=== PATIENT | male | born 1990 | race Caucasian/White ===

== ENCOUNTER 2020-02-28 12:04 | Inpatient (IN) | payer OTHER ==
--- NOTE | 2020-02-28 12:11 | PDOC ---
Rapid Medical Evaluation Time Seen by Provider: 02/28/20 12:07 Medical Evaluation: 02/28/20 12:07 Pt presents for evaluation of L 2nd digit redness and swelling. He states he was using a oil sprayer yesterday and injured his L 2nd digit. He now notes the finger is swollen and painful. Pt is R handed. Exam: Circumferential swelling to the L 2nd digit with streaking to the L hand Orders: defer to provider Pt to proceed to the ER for further evaluation Discharge Disposition - Diagnosis Hand swelling Qualifiers: Laterality: left Qualified Code(s): M79.89 - Other specified soft tissue disorders - Referrals - Patient Instructions - Post Discharge Activity
--- NOTE | 2020-02-28 13:22 | PDOC ---
History of Present Illness - General Chief Complaint: Injury Stated Complaint: SENT BY DOC Time Seen by Provider: 02/28/20 12:07 History Source: Patient Exam Limitations: No Limitations - History of Present Illness Initial Comments: 02/28/20 13:12 30y previously healthy M presenting w L hand 2nd digit edema/erythema/warmth/distal fingertip numbness after accidentally shooting l acryl pain into digit. Can still flex/extend digit. Did not take any meds for pain. Pt is R handed. This morning, obtained finger XR at [facility] which did not show any fracture/dislocation/bony involvement. Last tdap 2017. denies fever, cough, chest pain/SOB Past History - Medical History Allergies/Adverse Reactions: Allergies Allergy/AdvReac Type Severity Reaction Status Date / Time No Known Allergies Allergy Verified 02/28/20 12:07 Home Medications: Ambulatory Orders NK [No Known Home Medication] 02/28/20 COPD: No - Immunization History Immunization Up to Date: Yes - Psycho-Social/Smoking History Smoking History: Current every day smoker Have you smoked in the past 12 months: No Information on smoking cessation initiated: No - Substance Abuse Hx (Audit-C & DAST Scrn) How often the patient has a drink containing alcohol: Never Score: In Men: 4 or > Positive; In Women: 3 or > Positive: 0 Screen Result (Pos requires Nsg. Audit-10AR): Negative In the last yr the pt used illegal drug/Rx for NonMed reason: No Score: Yes response is considered Positive: 0 Screen Result (Positive result requires Nsg. DAST-10): Negative Review of Systems - Review of Systems Constitutional: No: Chills, Fever HEENTM: No: Eye Pain, Nose Congestion Respiratory: No: Cough, Shortness of Breath Cardiac (ROS): No: Chest Pain, Palpitations ABD/GI: No: Abdominal Distended, Constipated, Diarrhea, Nausea, Vomiting : No: Burning, Dysuria Musculoskeletal: Yes: Joint Pain. No: Back Pain Integumentary: No: Bruising, Flushing Neurological: No: Headache, Seizure Psychiatric: No: Anxiety, Depression Endocrine: No: Intolerance to Cold, Intolerance to Heat Hematologic/Lymphatic: No: Anemia, Blood Clots *Physical Exam - Vital Signs Last Vital Signs Temp Pulse Resp BP Pulse Ox 98.1 F 104 H 18 153/92 98 07/01/20 12:09 02/28/20 12:28 02/28/20 12:28 02/28/20 12:28 02/28/20 12:28 - Physical Exam General Appearance: Yes: Nourished, Appropriately Dressed, Mild Distress HEENT: positive: EOMI, DIANE, Normal Voice, Hearing Grossly Normal. negative: Scleral Icterus (R), Scleral Icterus (L) Respiratory/Chest: positive: Lungs Clear, Normal Breath Sounds. negative: Chest Tender, Respiratory Distress Cardiovascular: positive: Regular Rhythm, Regular Rate, S1, S2. negative: Edema, Murmur Comments:: 02/28/20 14:12 2+ radial oulses sandor Gastrointestinal/Abdominal: positive: Normal Bowel Sounds, Flat, Soft. negative: Tender, Organomegaly Extremity: positive: Other (L 2nd digit : warm, numb to sensation distal fingertip, distal phalanx swollen, erythematous w dark discoloration over distal phalanx, no discharge/bleeding, moderately tender to palpation) Integumentary: positive: Normal Color, Warm Neurologic: positive: Fully Oriented, Alert, Normal Mood/Affect, Normal Response, Responsive ED Treatment Course - LABORATORY CBC & Chemistry Diagram: 02/28/20 13:40 02/28/20 13:40 Medical Decision Making - Medical Decision Making 02/28/20 13:50 EKG - NSR, HR 94, QTc 445, no ST changes --- 30y previously healthy M presenting w L hand 2nd digit edema/erythema/warmth/distal fingertip numbness after accidentally shooting lacryl pain into digit. Likely cellulitis. Low concern for peronychia/pulp vs flexor tenosynovitis Consulted ortho Dr Kobi RICK evaluated pt, advised no emergent intervention needed, not concerned about compartment syndrome, give antibiotics and admit Given vanc, percocet, 4 morphine Admit m/s hospitalist cellulitis No PCP Discharge - Discharge Information Problems reviewed: Yes Clinical Impression/Diagnosis: Cellulitis and abscess of finger, unspecified Condition: Good - Follow up/Referral - Patient Discharge Instructions - Post Discharge Activity
[2020-02-28] MEDS ORDERED: VANCOMYCIN 1 GM in D5W (PRE-DOCKED) 1,000 MG/250 ML IVPB ONE (13:24)
[2020-02-28] MEDS ORDERED: VANCOMYCIN 1 GRAM (PRE-DOCKED) 1,000 MG/250 ML BAG IVPB ONE (13:25)
[2020-02-28 13:51] LABS: BASO % 0.2 % (0-2.0); EOS % 4.6 % (0-4.5); HEMATOCRIT 43.6 % (35.4-49); HEMOGLOBIN 14.5 GM/dL (11.7-16.9); LYMPH % 17.2 % (8-40); MCH 31.3 pg (25.7-33.7); MCHC 33.3 g/dl (32.0-35.9); MEAN CELL VOLUME 94.1 fl (80-96); MEAN PLT VOLUME 8.7 fl (7.5-11.1); PLATELET COUNT 341 K/MM3 (134-434); RBC 4.63 M/mm3 (4.00-5.60); RDW 13.1 % (11.9-15.9)
--- NOTE | 2020-02-28 13:53 | CON.ORTH ---
Consult Reason for Consultation:: left index finger infection - Smoking History Smoking history: Current every day smoker Have you smoked in the past 12 months: No Home Medications - Allergies Allergies/Adverse Reactions: Allergies Allergy/AdvReac Type Severity Reaction Status Date / Time No Known Allergies Allergy Verified 02/28/20 12:07 - Home Medications Home Medications: Ambulatory Orders NK [No Known Home Medication] 02/28/20 Physical Exam for Ortho Vital Signs: Vital Signs Temperature 98.1 F 02/28/20 12:09 Pulse Rate 104 H 02/28/20 12:28 Respiratory Rate 18 02/28/20 12:28 Blood Pressure 153/92 02/28/20 12:28 O2 Sat by Pulse Oximetry (%) 98 02/28/20 12:28 - Upper Extremity Hand: Yes: Left, Erythema, Limited ROM, Pain, Swelling, Tenderness, Other (left index finger- +erythema, + swelling, no fluctuance,+ ttp over distal phalanx, limited rom in pip and dip, slight decreased sensation in distal phalanx, good capillary refill) Imaging - Results X-ray: Image Reviewed, Other (Image reviewed from urgent care shows no fx, dislocation lytic or blastic lesions) Assessment/Plan 30 year old right hand dominant male who presents to the ED from Urgent Care for evaluation of finger pain for one day. Patient was using a spray i painter yesterday and consequently injured his left 2nd digit. He endorses swelling, erythema, and pain for the distal aspect of the left 2nd digit. Denies any fever, chills, n/v. Denies numbness or tingling but has decreased sensation in the distal phalanx. a/p left index finger cellulitis No surgical intervention at this time, will continue to observe recommend IV abx ID consult strict elevation warm soaks will follow d/w Dr. Peace
[2020-02-28] MEDS ORDERED: morphine CARPU-JECT 4 MG/1 ML DISP.SYRIN IVPUSH ONE (14:27)
[2020-02-28 14:29] LABS: ALBUMIN 4.4 g/dl (3.4-5.0); BILIRUBIN,TOTAL 0.6 mg/dL (0.2-1); BLOOD UREA NITROGEN 11.3 mg/dL (7-18); CALCIUM 9.8 mg/dL (8.5-10.1); CREATININE 0.9 mg/dL (0.55-1.3); POTASSIUM 4.1 mmol/L (3.5-5.1); TOT PROT 8.4 g/dl (6.4-8.2)
--- NOTE | 2020-02-28 14:44 | HP ---
CHIEF COMPLAINT: PCP: None HISTORY OF PRESENT ILLNESS: 30y/o smoker M presenting w L hand 2nd digit edema/erythema/warmth/distal fingertip numbness after accidentally shooting lacryl paint into digit yest at work. Pt initially seen in urgent care and sent over to the ED for further eval. Can still flex/extend digit. Did not take any meds for pain. Pt is R handed. This morning, pain worsened beginning around 4am and pt went to obtained finger XR at [facility] which did not show any fracture/dislocation/bony involvement. Last tdap 2017. denies fever, cough, chest pain/SOB. Pt was not wearing any gloves ER course was notable for: (1) Left 2nd digit pain (2) (3) Recent Travel: Denies PAST MEDICAL HISTORY: pos smoking hx PAST SURGICAL HISTORY: none Social History: Smoking: Current smoker Alcohol: occasional Drugs: denies Works as a painter assistant Allergies No Known Allergies Allergy (Verified 02/28/20 12:07) HOME MEDICATIONS: Home Medications Medication Instructions Recorded NK [No Known Home Medication] 02/28/20 REVIEW OF SYSTEMS CONSTITUTIONAL: Absent: fever, chills, diaphoresis, generalized weakness, malaise, loss of appetite, weight change HEENT: Absent: rhinorrhea, nasal congestion, throat pain, throat swelling, difficulty swallowing, mouth swelling, ear pain, eye pain, visual changes CARDIOVASCULAR: Absent: chest pain, syncope, palpitations, irregular heart rate, lightheadedness, peripheral edema RESPIRATORY: Absent: cough, shortness of breath, dyspnea with exertion, orthopnea, wheezing, stridor, hemoptysis GASTROINTESTINAL: Absent: abdominal pain, abdominal distension, nausea, vomiting, diarrhea, constipation, melena, hematochezia GENITOURINARY: Absent: dysuria, frequency, urgency, hesitancy, hematuria, flank pain, genital pain MUSCULOSKELETAL: Absent: myalgia, arthralgia, joint swelling, back pain, neck pain POS LEFT HAND 2ND DIGIT PAIN SKIN: Absent: rash, itching, pallor HEMATOLOGIC/IMMUNOLOGIC: Absent: easy bleeding, easy bruising, lymphadenopathy, frequent infections ENDOCRINE: Absent: unexplained weight gain, unexplained weight loss, heat intolerance, cold intolerance NEUROLOGIC: Absent: headache, focal weakness or paresthesias, dizziness, unsteady gait, seizure, mental status changes, bladder or bowel incontinence PSYCHIATRIC: Absent: anxiety, depression, suicidal or homicidal ideation, hallucinations. PHYSICAL EXAMINATION Vital Signs - 24 hr 02/28/20 02/28/20 12:09 12:28 Temperature 98.1 F Pulse Rate 120 H Pulse Rate [ 104 H Left Apical] Respiratory 18 18 Rate Blood Pressure 166/106 H Blood Pressure 153/92 [Left Arm] O2 Sat by Pulse 100 98 Oximetry (%) GENERAL: Awake, alert, and fully oriented, in no acute distress. HEAD: Normal with no signs of trauma. EYES: NC/AT, extraocular movements intact, sclera anicteric, conjunctiva clear. No lid lag. EARS, NOSE, THROAT: Ears normal, nares patent, oropharynx clear without exudates. Moist mucous membranes. NECK: Normal range of motion, supple without lymphadenopathy, JVD, or masses. LUNGS: Breath sounds equal, clear to auscultation bilaterally. No wheezes, and no crackles. No accessory muscle use. HEART: Regular rate and rhythm, normal S1 and S2 without murmur, rub or gallop. ABDOMEN: Soft, nontender, not distended, normoactive bowel sounds, no guarding, no rebound, no masses. No hepatomegaly or splenomegaly. MUSCULOSKELETAL: Normal range of motion at all joints. No bony deformities or tenderness. No CVA tenderness. UPPER EXTREMITIES: 2+ pulses, warm, well-perfused. No cyanosis. No clubbing. No peripheral edema. LOWER EXTREMITIES: 2+ pulses, warm, well-perfused. No calf tenderness. No peripheral edema. NEUROLOGICAL: Cranial nerves II-XII intact. Normal speech. Normal gait. PSYCHIATRIC: Cooperative. Good eye contact. Appropriate mood and affect. SKIN: Warm, dry, normal turgor, no rashes or lesions noted, normal capillary refill. LEFT HAND 2ND DIGIT DISCOLORED, EDEMATOUS, WARM TO TOUCH, LEFT HAND EDEMA WELL Laboratory Results - last 24 hr 02/28/20 02/28/20 13:40 13:40 WBC 16.0 H RBC 4.63 Hgb 14.5 Hct 43.6 MCV 94.1 MCH 31.3 MCHC 33.3 RDW 13.1 Plt Count 341 MPV 8.7 Absolute Neuts (auto) 11.3 H Neutrophils % 71.0 Lymphocytes % 17.2 Monocytes % 7.0 Eosinophils % 4.6 H Basophils % 0.2 Nucleated RBC % 0 Sodium 136 Potassium 4.1 Chloride 103 Carbon Dioxide 25 Anion Gap 8 BUN 11.3 Creatinine 0.9 Est GFR (CKD-EPI)AfAm 130.52 Est GFR (CKD-EPI)NonAf 112.62 Random Glucose 120 H Calcium 9.8 Total Bilirubin 0.6 AST 17 ALT 32 Alkaline Phosphatase 58 Total Protein 8.4 H Albumin 4.4 ekg: PENDING ASSESSMENT/PLAN: 30 Y/O SMOKER ADMITTED WITH LEFT HAND 2ND DIGIT CELLULITIS FROM LACRYL PAINT *LEFT HAND AND 2ND DIGIT CELLULITIS -- S/P VANC WILL ADD ROCEPHIN ID EVAL BLOOD CLTURES DRAWN LEUKOCYTOSIS PULSES INTACT AFEBRILE -- SEEN BY ORTHO WILL GET ID EVAL *TOBACCO USE - STATES DOESNT SMOKE MUCH OUTPT FOLLOW UP FOR TOBACCO CESSATION *DVT PROPHY - VENOSYNES WHILE IN BED, AMBULATION Family Medical History Family Hx Coronary Artery Disease: Mother Problem List - Problem (1) Cellulitis and abscess of finger, unspecified Code(s): L03.019 - CELLULITIS OF UNSPECIFIED FINGER; L02.519 - CUTANEOUS ABSCESS OF UNSPECIFIED HAND (2) Tobacco use disorder Code(s): F17.200 - NICOTINE DEPENDENCE, UNSPECIFIED, UNCOMPLICATED Visit type - Emergency Visit Emergency Visit: Yes Care time: The patient presented to the Emergency Department on the above date and was hospitalized for further evaluation of their emergent condition. - New Patient This patient is new to me today: Yes Date on this admission: 02/28/20 - Critical Care Critical Care patient: No
[2020-02-28] MEDS ORDERED: MORPHINE SULFATE 2 MG/ML VIAL IVPUSH PRN (14:45)
[2020-02-28] MEDS ORDERED: ACETAMINOPHEN 325 MG TABLET (FP) PO PRN (14:45)
[2020-02-28] MEDS ORDERED: MORPHINE SULFATE 2 MG/ML VIAL ONE ×2 (15:21→19:42)
--- NOTE | 2020-02-28 15:54 | PDOC ---
Documentation entered by Leah Cash SCRIBE, acting as scribe for Li Amaral MD. Li Amaral MD: This documentation has been prepared by the Shreya dale Adrianna, SCRIBE, under my direction and personally reviewed by me in its entirety. I confirm that the documentation accurately reflects all work, treatment, procedures, and medical decision making performed by me. Attending Attestation - Resident Resident Name: Raji Wong - ED Attending Attestation I have performed the following: I have examined & evaluated the patient, The case was reviewed & discussed with the resident, I agree w/resident's findings & plan, Exceptions are as noted - HPI HPI: The patient is a 30 year old male, with significant PMH, who presents to the ED from Urgent Care for evaluation of finger pain for one day. Patient was using a solder sprayer yesterday and consequently injured his left 2nd digit. He endorses swelling, erythema, and pain for the distal aspect of the left 2nd digit. Patient is RHD. Allergies: NKA , NKDA Surgical History: None reported Social History: No toxic habits - Physicial Exam PE: General: non-toxic appearing Extremities: L 2nd digit with uniform swelling, holding in slight flexion, +pain on passive extension, diffuse tenderness of L 2nd digit, abduction/adduction intact, no appreciable fluctuance, good cap refill - Medical Decision Making 02/28/20 15:52 30 yo M with concern for flexor tenosynovitis, less likely felon or paronychia, seen by ortho who recommend admission for IV abx. Pt. seen at urgent care with xray negative for fx or foreign body Plan: -labs -vanc -pain control as needed -admit This clinical encounter is taking place during a federal and state health care emergency attributable to the novel [place] Virus pandemic. The [place] of the Department of Health and Human Services has declared, pursuant to the Public Health Service Act 319F-3 (42 U.S.C. 247d-6d), that a covered persons activities related to medical countermeasures against COVID-19 will be immune from liability under Federal and State law. Heart Score/ECG Review - ECG Intrepretation Rhythm: Regular Rhythm - ECG Impressions Normal ECG: Yes Comment:: ECG performed at 13:40 on 02/28/2020 demonstrates normal sinus rhythm at 94bpm. Normal ECG. Discharge - Discharge Information Problems reviewed: Yes Clinical Impression/Diagnosis: Cellulitis and abscess of finger, unspecified Condition: Good - Follow up/Referral - Patient Discharge Instructions - Post Discharge Activity
[2020-02-28] MEDS ORDERED: CEFTRIAXONE 1 GM in DEXTROSE 5%-WATER - 50 ML IVPB SCH (16:00)
[2020-02-28] MEDS ORDERED: CEFTRIAXONE 1 GM/50 ML BAG ONE (16:31)
[2020-02-28] MEDS ORDERED: METOCLOPRAMIDE HCL INJECTION 10 MG/2 ML VIAL IVPB ONE (18:47)
[2020-02-28] MEDS ORDERED: MORPHINE SULFATE 2 MG/ML VIAL IVPUSH ONE (20:30)
[2020-02-29] MEDS ORDERED: oxyCODONE HCL 5 MG TABLET ONE ×2 (01:42→07:52)
[2020-02-29] MEDS: oxyCODONE HCL 5 MG TABLET PO PRN ×2 (01:44→07:56)
[2020-02-29 06:06] LABS: HEMATOCRIT 42.7 % (35.4-49); HEMOGLOBIN 14.1 GM/dL (11.7-16.9); MCH 31.1 pg (25.7-33.7); MCHC 32.9 g/dl (32.0-35.9); MEAN CELL VOLUME 94.4 fl (80-96); MEAN PLT VOLUME 8.7 fl (7.5-11.1); PLATELET COUNT 312 K/MM3 (134-434); RBC 4.53 M/mm3 (4.00-5.60); RDW 13.2 % (11.9-15.9); WHITE BLOOD COUNT 13.1 K/mm3 (4.0-10.0)
[2020-02-29 06:25] LABS: BLOOD UREA NITROGEN 14.5 mg/dL (7-18); CALCIUM 9.2 mg/dL (8.5-10.1); POTASSIUM 4.1 mmol/L (3.5-5.1)
--- NOTE | 2020-02-29 08:06 | PN ---
Teaching Attending Note Name of Resident: Anderson Miller ATTENDING PHYSICIAN STATEMENT I saw and evaluated the patient. I reviewed the resident's note and discussed the case with the resident. I agree with the resident's findings and plan as documented. SUBJECTIVE: Patient states that his finger is feeling worse and the hand is more swollen. OBJECTIVE: Vital Signs Temperature 98.2 F 02/29/20 06:20 Pulse Rate 99 H 02/29/20 06:20 Respiratory Rate 18 02/29/20 06:20 Blood Pressure 143/90 02/29/20 06:20 O2 Sat by Pulse Oximetry (%) 100 02/29/20 06:20 Initial Vital Signs Temp Pulse Resp BP Pulse Ox 98.1 F 120 H 18 166/106 H 100 02/28/20 12:09 02/28/20 12:09 02/28/20 12:09 02/28/20 12:09 02/28/20 12:09 PE: per resident's note CBCD WBC 13.1 K/mm3 (4.0-10.0) H 02/29/20 05:35 RBC 4.53 M/mm3 (4.00-5.60) 02/29/20 05:35 Hgb 14.1 GM/dL (11.7-16.9) 02/29/20 05:35 Hct 42.7 % (35.4-49) 02/29/20 05:35 MCV 94.4 fl (80-96) 02/29/20 05:35 MCHC 32.9 g/dl (32.0-35.9) 02/29/20 05:35 RDW 13.2 % (11.9-15.9) 02/29/20 05:35 Plt Count 312 K/MM3 (134-434) 02/29/20 05:35 MPV 8.7 fl (7.5-11.1) 02/29/20 05:35 CMP Sodium 137 mmol/L (136-145) 02/29/20 05:35 Potassium 4.1 mmol/L (3.5-5.1) 02/29/20 05:35 Chloride 103 mmol/L (98-107) 02/29/20 05:35 Carbon Dioxide 26 mmol/L (21-32) 02/29/20 05:35 Anion Gap 8 MMOL/L (8-16) 02/29/20 05:35 BUN 14.5 mg/dL (7-18) 02/29/20 05:35 Creatinine 1.0 mg/dL (0.55-1.3) 02/29/20 05:35 Random Glucose 106 mg/dL (74-106) 02/29/20 05:35 Calcium 9.2 mg/dL (8.5-10.1) 02/29/20 05:35 Total Bilirubin 0.6 mg/dL (0.2-1) 02/28/20 13:40 AST 17 U/L (15-37) 02/28/20 13:40 ALT 32 U/L (13-61) 02/28/20 13:40 Alkaline Phosphatase 58 U/L (45-117) 02/28/20 13:40 Total Protein 8.4 g/dl (6.4-8.2) H 02/28/20 13:40 Albumin 4.4 g/dl (3.4-5.0) 02/28/20 13:40 Current Medications Generic Name Dose Route Start Last Admin Trade Name Freq PRN Reason Stop Dose Admin Acetaminophen 650 mg 02/28/20 14:45 Tylenol - PO Q4H PRN FEVER Ceftriaxone Sodium 1 gm/ 50 mls @ 100 mls/hr 02/28/20 16:00 02/28/20 16:29 Dextrose IVPB 100 mls/hr DAILY DICKSON Administration Protocol Morphine Sulfate 1 mg 02/28/20 14:45 02/28/20 19:48 Morphine Sulfate IVPUSH 1 mg Q4H PRN Administration PAIN LEVEL 7 - 10 Oxycodone HCl 5 mg 02/28/20 14:45 02/29/20 07:56 Roxicodone - PO 5 mg Q4H PRN Administration PAIN LEVEL 4 - 6 Home Medications Medication Instructions Recorded NK [No Known Home Medication] 02/28/20 Laboratory Tests 02/28/20 13:40 COVID-19 (EFE) Pending Microbiology 02/28/20 13:40 Blood - Peripheral Venous Blood Culture - Preliminary NO GROWTH OBTAINED AFTER 24 HOURS, INCUBATION TO CONTINUE FOR 4 DAYS. 02/28/20 13:40 Blood - Peripheral Venous Blood Culture - Preliminary NO GROWTH OBTAINED AFTER 24 HOURS, INCUBATION TO CONTINUE FOR 4 DAYS. ASSESSMENT AND PLAN: This patient is a 30yom right handed, smoker presented with left Index finger cellulitis. # Acute left index finger cellulitis. s/p IV rocephin, will switch to Zosyn IV, s/p one dose of vanco. Blood Cx is pending, REFUGIO Phylicia is on the case. # Tobacco dependency: advised cessation # Elevated Blood pressure; possible due to pain, will monitor #BMI of 28; Overweight ; lifestyle modifications. DVT Px: early ambulation , lovenox sq
[2020-02-29] MEDS ORDERED: ENOXAPARIN NA (PORCINE) 40 MG/0.4 ML DISP.SYRIN SQ ONE (08:29)
[2020-02-29] MEDS ORDERED: ENOXAPARIN NA (PORCINE) 40 MG/0.4 ML DISP.SYRIN SQ SCH (10:00)
[2020-02-29] MEDS ORDERED: PIPERACILLIN/TAZOB 3.375 GM 3.375 GM in DEXTROSE 5%-WATER - 50 ML IVPB SCH (10:00)
--- NOTE | 2020-02-29 10:10 | PN ---
Progress Note (short form) - Note Progress Note: Pt seen and examined in ER. Of note - the ER staff called me yesterday to see this patient. They mistakenly thought our group was on ER call for orthopedics, there is no Hand call. I told them we were not on ER call and to call Dr Mondragon's group. They asked if we could do a quick consult, which we did. Then we were called again this morning to see the patient in the ER. I reiterated that they should call the Ortho team that is steam distribution supervisor, again Dr Mondragon's group. I saw the patient again as a courtesy to the ER, but we are not taking this patient on. PE Left index finger with white paint, no significant injection wound, or exit wound, but entry wound likely at tuft. + area of cellulitis circumferentially around left index finger both volar and dorsal, with extension into the dorsal aspect of the hand. No drainage. Grossly NVI. Decreased ROM of index finger secondary to pain and swelling, FDS, FDP and EDC all intact. Index finger is moderately swollen and tight, tender globally. Imp Left index finger paint gun injection injury, now with left index finger infection, with extension to the left hand. Rec Continue IV antibiotics. Elevation The patient may need a surgical I&D, that is up to the Orthopedic consult steam distribution supervisor for the ER. I defer to their opinion. Please put a consult in for Dr Mondragon and Jayson's group. I relayed this request verbally to the ER staff twice.
[2020-02-29 11:07] VITALS: TEMP 97.5
[2020-02-29] MEDS ORDERED: VANCOMYCIN 1 GRAM (PRE-DOCKED) 1,000 MG/250 ML BAG IVPB ONE (11:12)
[2020-02-29] MEDS ORDERED: ACETAMINOPHEN 325 MG TABLET (FP) ONE (11:12)
--- NOTE | 2020-02-29 11:50 | PN ---
Progress Note (short form) - Note Progress Note: came to see the patient patient being transferred to [facility]
--- NOTE | 2020-02-29 11:52 | DS ---
Physical Exam: SUBJECTIVE: Patient seen and examined. Pt is in NAD. He endorses 8/10 pain and swelling on the 2nd left digit. He also reported new pain in the 3rd, 4th, and 5th left digits, with pain radiating down the ulnar aspect of his arm. Pain described as pressure/"exploding." Denies tingling/numbness. ROS negative except as above. OBJECTIVE: Vital Signs Period Temp Pulse Resp BP Sys/Ordonez Pulse Ox Last 24 Hr 97.5 F-98.6 F 88-120 16-19 128-166/60-106 97-100 PHYSICAL EXAM GENERAL: The patient is awake, alert, and fully oriented, in no acute distress. HEAD: Normal with no signs of trauma. HEENT: NC/NT LUNGS: Breath sounds equal, clear to auscultation bilaterally, no wheezes, no crackles, no accessory muscle use. HEART: Regular rate and rhythm, S1, S2 without murmur, rub or gallop. ABDOMEN: Soft, nontender, nondistended, normoactive bowel sounds, no guarding, no rebound, no hepatosplenomegaly, no masses. UPPER EXTREMITIES: 2nd digit on L hand is edematous, erythematous, warm, and TTP. The skin over the distal phalanx is darker and has decreased sensation. Pt is unable to extend/flex the distal phalanx at the DIP. There is mild erythema at the tips of the 3rd, 4th, and 5th digits on the Left hand, but only the 3rd digit is TTP. Dorsal aspect of the left hand is edematous, and erythematous. There is still paint residue on his left hand. LOWER EXTREMITIES: warm, well-perfused, no edema. NEUROLOGICAL: Normal speech, gait not observed. PSYCH: Normal mood, normal affect. SKIN: dry LABS Laboratory Results - last 24 hr 02/28/20 02/28/20 02/29/20 13:40 13:40 05:35 WBC 16.0 H 13.1 H RBC 4.63 4.53 Hgb 14.5 14.1 Hct 43.6 42.7 MCV 94.1 94.4 MCH 31.3 31.1 MCHC 33.3 32.9 RDW 13.1 13.2 Plt Count 341 312 MPV 8.7 8.7 Absolute Neuts (auto) 11.3 H Neutrophils % 71.0 Lymphocytes % 17.2 Monocytes % 7.0 Eosinophils % 4.6 H Basophils % 0.2 Nucleated RBC % 0 Sodium 136 Potassium 4.1 Chloride 103 Carbon Dioxide 25 Anion Gap 8 BUN 11.3 Creatinine 0.9 Est GFR (CKD-EPI)AfAm 130.52 Est GFR (CKD-EPI)NonAf 112.62 Random Glucose 120 H Calcium 9.8 Total Bilirubin 0.6 AST 17 ALT 32 Alkaline Phosphatase 58 Total Protein 8.4 H Albumin 4.4 02/29/20 05:35 WBC RBC Hgb Hct MCV MCH MCHC RDW Plt Count MPV Absolute Neuts (auto) Neutrophils % Lymphocytes % Monocytes % Eosinophils % Basophils % Nucleated RBC % Sodium 137 Potassium 4.1 Chloride 103 Carbon Dioxide 26 Anion Gap 8 BUN 14.5 Creatinine 1.0 Est GFR (CKD-EPI)AfAm 114.91 Est GFR (CKD-EPI)NonAf 99.15 Random Glucose 106 Calcium 9.2 Total Bilirubin AST ALT Alkaline Phosphatase Total Protein Albumin HOSPITAL COURSE: Date of Admission:02/28/20 Date of Discharge: 02/29/20 30 YO M with PMH of smoking presents with edema, erythema, warmth, and 10/10 pain on his 2nd digit on his Left hand. These symptoms began 2 days ago after shooting lacryl paint at his 2nd L digit. He was initially evaluated in urgent care, and x-ray from this center was negative for foreign bodies. Pt came to ED because the pain worsened. Upon arrival the pt was afebrile and denied fever, cough, chest pain, SOB. He was given one dose of vancomycin and started on ceftriaxone. EKG was WNL. Blood cultures were sent. Last tdap was 2017. Ceftriaxone was replaced with zosyn. WBCs were elevated at 16, but decreased to 13.1 now. Pt will be transferred to [facility] for evaluation by Hand surgeon. Minutes to complete discharge: 45 Discharge Summary Problems reviewed: Yes Reason For Visit: CELLULITIS AND ABSCESS OF FINGER UNSPECIFIED Current Active Problems Cellulitis and abscess of finger, unspecified (Acute) Tobacco use disorder (Acute) Condition: Stable - Instructions Diet, Activity, Other Instructions: You came in for an infection on your left 2nd finger. You are being transferred to [facility] for evaluation by a hand surgeon. Disposition: TRANSFER ACUTE CARE/OTHER HOSP - Home Medications Comprehensive Discharge Medication List: Ambulatory Orders NK [No Known Home Medication] 02/28/20 This patient is new to me today: Yes Date on this admission: 02/28/20 Emergency Visit: Yes ED Registration Date: 02/28/20 Care time: The patient presented to the Emergency Department on the above date and was hospitalized for further evaluation of their emergent condition. Critical Care patient: No - Discharge Referral Referred to [facility] Med [facility] No ATTENDING PHYSICIAN STATEMENT I saw and evaluated the patient. I reviewed the resident's note and discussed the case with the resident. I agree with the resident's findings and plan as documented. SUBJECTIVE: OBJECTIVE: ASSESSMENT AND PLAN:
[2020-02-29 12:08] VITALS: BP 152/85; PULSE 75; BMI 29.0
[2020-02-29] MEDS: VANCOMYCIN 1 GRAM (PRE-DOCKED) 1,000 MG/250 ML BAG IVPB SCH ×2 (12:28→12:41)
--- NOTE | 2020-02-29 14:07 | EKG ---
Test Reason : Blood Pressure : / mmHG Vent. Rate : 094 BPM Atrial Rate : 094 BPM P-R Int : 140 ms QRS Dur : 084 ms QT Int : 356 ms P-R-T Axes : 060 077 037 degrees QTc Int : 445 ms NORMAL SINUS RHYTHM NORMAL ECG NO PREVIOUS ECGS AVAILABLE Confirmed by RADHA BRIGGS MD ([id number]) on 02/29/2020 2:07:12 PM Referred By: Confirmed By:RADHA BRIGGS MD
== END 2020-02-29 13:17 | disposition short-term general hospital (02) | DRG 383 ==
LOC: JER 12:04 → JERBED 15:16 → J8W 02-29 11:18
PROVIDERS: ADMIT Internal Medicine; ATTEND Internal Medicine
DX: L03.012 Cellulitis of left finger (principal); M79.632 Pain in left forearm; F17.210 Nicotine dependence, cigarettes, uncomplicated; E66.3 Overweight; Z68.28 Body mass index [BMI] 28.0-28.9, adult; R03.0 Elevated blood-pressure reading, without diagnosis of hypertension
CPT/HCPCS: 36415; 80048; 80053; 85025; 85027; 87040; 93005; 93010; 99285-25; U0003